=== PATIENT | female | born 1955 | race Caucasian/White ===

== ENCOUNTER → 2016-09-11 | Outpatient (CLI) | payer BC ==
[~2016-09-11] MED LIST: ESTR2TAB PO; NUTRTAB41 OR; PAROXETINE HCL 10 MG TABLET PO; VERA1TAB9 PO
[2016-09-11 17:08] LABS: Basophils # (auto) 0 uL; Basophils % (auto) 0.6 % (0.0-2.0); Eosinophils # (auto) 0.2 uL; Eosinophils % (auto) 2.7 % (0.0-7.0); Hematocrit 37.8 % (36.0-46.0); Hemoglobin 12.7 g/dL (12.2-16.2); Lymphocytes # (auto) 2.5 uL; Lymphocytes % (auto) 36.8 % (10.0-50.0); Mean Corpuscular Hemoglobin 27.5 pg (28.0-32.0); Mean Corpuscular Hgb Conc. 33.7 g/dL (32.0-36.0); Mean Corpuscular Volume 81.8 fL (80.0-100.0); Mean Platelet Volume 7.7 fL (7.4-10.4); Monocytes # (auto) 0.5 uL; Monocytes % (auto) 7.5 % (0.0-12.0); Neutrophils # (auto) 3.5 uL; Neutrophils % (auto) 52.4 % (37.0-80.0); Platelet Count (auto) 247 10^3/uL (140-450); Red Cell Distribution Width 13.6 % (11.6-16.0); White Blood Cell 6.8 10^3/uL (4.4-10.8)
[2016-09-11 17:21] LABS: INR 0.94 (0.9-1.15); Partial Thromboplastin Time 24.5 sec (22.64-33.71); Prothrombin Time 9.7 sec (9.37-12.3)
[2016-09-11 18:36] LABS: Albumin 3.6 g/dL (3.4-5.0); BUN/Creatinine Ratio 23.1; Bilirubin, Total 0.2 mg/dL (0.2-1.0); Calcium 8.9 mg/dL (8.5-10.1); Potassium 4.4 mmol/L (3.5-5.1); Total Protein 6.9 g/dL (6.4-8.2)
== END | disposition home or self-care (01) ==
LOC: LAB 16:42
PROVIDERS: ATTEND Internal Medicine
DX: T14.8 Other injury of unspecified body region (principal)
CPT/HCPCS: 36415; 80053; 83615; 85025; 85610; 85730

== ENCOUNTER → 2016-09-18 | Outpatient (CLI) | payer BC | END | disposition home or self-care (01) | LOC: LAB 16:56 | PROVIDERS: ATTEND Internal Medicine | DX: D68.9 Coagulation defect, unspecified (principal) | CPT/HCPCS: 36415; 85576 ==

== ENCOUNTER 2017-05-16 09:22 | Day surgery (SDC) | payer BC ==
[2017-05-13 12:48] LABS: Urine RBC None Seen /hpf (0 - 4)
[2017-05-13 12:57] LABS: Basophils # (auto) 0 uL; Basophils % (auto) 0.6 % (0.0-2.0); Eosinophils # (auto) 0.1 uL; Eosinophils % (auto) 1.1 % (0.0-7.0); Hematocrit 40.1 % (36.0-46.0); Hemoglobin 13.7 g/dL (12.2-16.2); Lymphocytes # (auto) 2.2 uL; Mean Corpuscular Hemoglobin 28.5 pg (28.0-32.0); Mean Corpuscular Hgb Conc. 34.1 g/dL (32.0-36.0); Mean Corpuscular Volume 83.4 fL (80.0-100.0); Mean Platelet Volume 8.3 fL (6.9-10.8); Monocytes # (auto) 0.5 uL; Monocytes % (auto) 6.6 % (0.0-12.0); Neutrophils # (auto) 4.5 uL; Neutrophils % (auto) 61.7 % (37.0-80.0); Nucleated Red Blood Cells % 0.1 %; Platelet Count (auto) 237 10^3/uL (140-450); Red Cell Distribution Width 13.3 % (11.8-14.3); White Blood Cell 7.4 10^3/uL (4.4-10.8)
[2017-05-13 13:11] LABS: Urine Bilirubin Negative (Negative); Urine Blood Negative /uL (Negative); Urine Color Yellow (Yellow); Urine Glucose Normal (Normal); Urine Ketone Negative (Negative); Urine Mucus FEW (None Seen); Urine Nitrite Negative (Negative); Urine Squamous Epithelial Cell FEW /hpf (<5); Urine Urobilinogen Normal (Negative); Urine pH 5.5 (5.0-8.0)
[2017-05-13 13:24] LABS: BUN/Creatinine Ratio 28.6; Calcium 9.2 mg/dL (8.5-10.1)
[2017-05-13 13:27] LABS: INR 0.92 (0.9-1.15)
[~2017-05-16] VITALS: Ht 162.6 cm; Wt 72.6 kg
[~2017-05-16 09:22] MED LIST changes: -ESTR2TAB PO; -NUTRTAB41 OR; +THYR60TA PO
[2017-05-16] MEDS ORDERED: ceFAZolin 1GM/50ML 50 ML IV ONE (09:42)
[2017-05-16] MEDS ORDERED: LACTATED RINGER'S 1,000 ML IV SCH (09:59)
[2017-05-16] MEDS ORDERED: GELATIN 1 SPONGE SIZE 100 TOP ONE (10:00)
[2017-05-16] MEDS ORDERED: METHYLENE BLUE 0.5% 5MG/ML 10ml AMP IV ONE (10:00)
[2017-05-16] MEDS ORDERED: ONDANSETRON HCL 4 MG/2 ML VIAL IV PRN (10:00)
[2017-05-16] MEDS ORDERED: CONJ ESTROGENS 0.625MG/GM VAG CRM 30GM PV ONE (10:00)
[2017-05-16] MEDS ORDERED: VASOPRESSIN 20 UNIT/ML ONE (10:02)
[2017-05-16] MEDS ORDERED: ONDANSETRON HCL 4 MG/2 ML VIAL IV ONE (10:15)
[2017-05-16] MEDS ORDERED: ePHEDrine SULFATE 50 MG/ML AMP IV PRN (10:15)
[2017-05-16] MEDS ORDERED: MIDAZOLAM HCL 1MG/1ML-2 ML VIAL IV PRN (10:15)
[2017-05-16] MEDS ORDERED: KETOROLAC TROMETH 30 MG/ML 1ML VIAL IV ONE (10:15)
[2017-05-16] MEDS ORDERED: LABETALOL HCL 5 MG/ML 4ML SYRINGE IV PRN (10:15)
[2017-05-16] MEDS ORDERED: MEPERIDINE HCL (50 MG/ML) 1 ML VIAL ONE (10:17)
[2017-05-16] MEDS ORDERED: fentaNYL CITRATE 100 MCG/2 ML VL ONE (10:17)
[2017-05-16] MEDS ORDERED: MIDAZOLAM HCL 1MG/1ML-2 ML VIAL ONE (10:17)
[2017-05-16] MEDS ORDERED: ONDANSETRON HCL 4 MG/2 ML VIAL ONE (10:18)
[2017-05-16] MEDS ORDERED: DEXAMETHASONE SOD PHOS 10MG/1ML VIAL INJ ONE (10:18)
[2017-05-16] MEDS ORDERED: KETOROLAC TROMETH 30 MG/ML 1ML VIAL ONE (10:18)
[2017-05-16] MEDS ORDERED: PROPOFOL 10 MG/ML 20 ML IV ONE (10:18)
[2017-05-16] MEDS ORDERED: LIDOCAINE 1% HCL (LOCAL ANESTH.) INJ 20ML MDV ONE (10:45)
[2017-05-16] MEDS ORDERED: BUPIVACAINE W/ EPINEPH 0.25% INJ 50ML MDV ONE (10:45)
[2017-05-16] MEDS: HYDROmorphone HCL 2 MG/ML VL IV PRN ×4 (12:00→12:30)
[2017-05-16] MEDS ORDERED: MORPHINE SULF INJ 2 MG/ML SYRINGE 1ML IV ONE (12:00)
[2017-05-16 12:45] VITALS: BP 112/74
== END 2017-05-16 12:54 | disposition home or self-care (01) ==
LOC: SUR 09:22
PROVIDERS: ATTEND Obstetrics & Gynecology
DX: N81.5 Vaginal enterocele (principal); N89.8 Other specified noninflammatory disorders of vagina; N81.10 Cystocele, unspecified; E03.9 Hypothyroidism, unspecified; I11.9 Hypertensive heart disease without heart failure; F10.99 Alcohol use, unspecified with unspecified alcohol-induced disorder; D69.6 Thrombocytopenia, unspecified; C56.9 Malignant neoplasm of unspecified ovary; D25.9 Leiomyoma of uterus, unspecified; F41.9 Anxiety disorder, unspecified; F32.9 Major depressive disorder, single episode, unspecified; Z90.710 Acquired absence of both cervix and uterus; I10 Essential (primary) hypertension
CPT/HCPCS: 36415; 56620; 57268; 80048; 81001; 85025; 85610; 85730; 87086; 88302; J0690; J1100; J1170; J1885; J2001; J2175; J2250; J2405; J2704; J3010

== ENCOUNTER → 2021-04-24 | Outpatient (CLI) | payer OTHER ==
[~2021-04-24] MED LIST changes: +VERA1TAB24 PO; -VERA1TAB9 PO
[2021-04-24 07:17] LABS: Basophils # (auto) 0.1 10 ^3/uL (0-0.2); Basophils % (auto) 0.9 % (0.0-2.0); Eosinophils # (auto) 0.1 10 ^3/uL (0-0.8); Eosinophils % (auto) 1.7 % (0.0-7.0); Hemoglobin 13.7 g/dL (12.2-16.2); Lymphocytes # (auto) 1.8 10 ^3/uL (0.4-5.4); Lymphocytes % (auto) 26.8 % (10.0-50.0); Mean Corpuscular Hgb Conc. 34.3 g/dL (32.0-36.0); Mean Corpuscular Volume 87.5 fL (80.0-100.0); Monocytes # (auto) 0.4 10 ^3/uL (0-1.3); Monocytes % (auto) 5.5 % (0.0-12.0); Neutrophils # (auto) 4.4 10 ^3/uL (1.6-8.6); Neutrophils % (auto) 65.1 % (37.0-80.0); Nucleated Red Blood Cells % 0.1 %; Red Blood Cells 4.57 10^6/uL (4.0-5.20); Red Cell Distribution Width 12.9 % (11.8-14.3); White Blood Cell 6.8 10^3/uL (4.4-10.8)
[2021-04-24 07:39] LABS: Cholesterol 138 mg/dL (< 200); HDL Cholesterol 58 mg/dL (40-59); LDL Cholesterol 69 mg/dL (< 100); Triglycerides 97 mg/dL (< 150)
[2021-04-24 12:11] LABS: Hepatitis A Ab IgM Negative
[2021-04-24 12:16] LABS: Hepatitis B Surface Antigen Negative (Negative)
[2021-04-24 12:22] LABS: Hepatitis B Core IgM Negative
[2021-04-24 12:43] LABS: Hepatitis C Antibody Negative (Negative)
== END | disposition home or self-care (01) ==
LOC: LAB 06:45
PROVIDERS: ATTEND Internal Medicine
DX: I10 Essential (primary) hypertension (principal); E78.5 Hyperlipidemia, unspecified
CPT/HCPCS: 36415; 80061; 80074; 84443; 85025

== ENCOUNTER → 2022-06-26 | Outpatient (CLI) | payer OTHER ==
[2022-06-26 14:44] LABS: Basophils # (auto) 0 10 ^3/uL (0-0.2); Basophils % (auto) 0.8 % (0.0-2.0); Eosinophils # (auto) 0.1 10 ^3/uL (0-0.8); Eosinophils % (auto) 1.3 % (0.0-7.0); Hematocrit 38.5 % (36.0-46.0); Hemoglobin 13.1 g/dL (12.2-16.2); Lymphocytes # (auto) 1.6 10 ^3/uL (0.4-5.4); Lymphocytes % (auto) 26.7 % (10.0-50.0); Mean Corpuscular Volume 85.3 fL (80.0-100.0); Monocytes # (auto) 0.5 10 ^3/uL (0-1.3); Monocytes % (auto) 7.6 % (0.0-12.0); Neutrophils # (auto) 3.9 10 ^3/uL (1.6-8.6); Neutrophils % (auto) 63.6 % (37.0-80.0); Nucleated Red Blood Cells % 0.2 %; Red Blood Cells 4.52 10^6/uL (4.0-5.20); Red Cell Distribution Width 13.8 % (11.8-14.3); White Blood Cell 6.1 10^3/uL (4.4-10.8)
[2022-06-26 15:17] LABS: Albumin 3.5 g/dL (3.4-5.0); Calcium 8.8 mg/dL (8.5-10.1); Potassium 4.3 mmol/L (3.5-5.1)
[2022-06-26 15:22] LABS: BUN/Creatinine Ratio 21.5; Bilirubin, Total 0.5 mg/dL (0.2-1.0); Total Protein 6.5 g/dL (6.4-8.2)
[2022-06-26 15:26] LABS: Follicle Stimulating Hormone 17.7 IU/L (SEE BELOW); Free T3 3.18 pg/mL (2.3-4.2)
== END | disposition home or self-care (01) ==
LOC: LAB 14:16
PROVIDERS: ATTEND Internal Medicine
DX: Z13.220 Encounter for screening for lipoid disorders (principal); E03.9 Hypothyroidism, unspecified; I10 Essential (primary) hypertension; E78.5 Hyperlipidemia, unspecified; N95.1 Menopausal and female climacteric states; E07.89 Other specified disorders of thyroid; E34.9 Endocrine disorder, unspecified; E53.9 Vitamin B deficiency, unspecified; E55.9 Vitamin D deficiency, unspecified
CPT/HCPCS: 36415; 80053; 80061; 82670; 83001; 84144; 84402; 84403; 84443; 84481; 85025

== ENCOUNTER 2022-08-10 09:17 | Emergency (ER) | payer OTHER ==
[~2022-08-10] VITALS: Ht 162.6 cm; Wt 72.0 kg
[2022-08-10 10:10] LABS: Urine Bacteria FEW /hpf (None Seen); Urine Blood 3+ /uL (Negative); Urine Mucus FEW (None Seen); Urine WBC 265 /hpf (0 - 5); Urine WBC Clumps PRESENT /hpf (None Seen)
[2022-08-10 10:18] LABS: Basophils # (auto) 0 10 ^3/uL (0-0.2); Basophils % (auto) 0.4 % (0.0-2.0); Eosinophils # (auto) 0 10 ^3/uL (0-0.8); Eosinophils % (auto) 0.1 % (0.0-7.0); Hematocrit 41.3 % (36.0-46.0); Hemoglobin 14.2 g/dL (12.2-16.2); Lymphocytes % (auto) 9.4 % (10.0-50.0); Mean Corpuscular Hemoglobin 28.7 pg (28.0-32.0); Mean Corpuscular Hgb Conc. 34.3 g/dL (32.0-36.0); Mean Corpuscular Volume 83.7 fL (80.0-100.0); Monocytes # (auto) 0.8 10 ^3/uL (0-1.3); Monocytes % (auto) 7.6 % (0.0-12.0); Neutrophils # (auto) 8.5 10 ^3/uL (1.6-8.6); Neutrophils % (auto) 82.5 % (37.0-80.0); Red Blood Cells 4.93 10^6/uL (4.0-5.20); White Blood Cell 10.3 10^3/uL (4.4-10.8)
[2022-08-10 10:30] LABS: Albumin 3.5 g/dL (3.4-5.0); Calcium 9.5 mg/dL (8.5-10.1); Potassium 3.4 mmol/L (3.5-5.1)
[2022-08-10 10:33] LABS: BUN/Creatinine Ratio 21.2; Bilirubin, Total 0.7 mg/dL (0.2-1.0); Total Protein 7.3 g/dL (6.4-8.2)
[2022-08-10 10:34] VITALS: BP 132/72
[2022-08-10] MEDS ORDERED: cefTRIAXone SOD 1,000 MG VL IM ONE (11:00)
[2022-08-10] MEDS ORDERED: PHENAZOPYRIDINE HCL 100 MG TAB PO ONE (11:00)
[2022-08-10] MEDS ORDERED: PHEN200T16 PO (11:24)
[2022-08-10] MEDS ORDERED: CIPR-173 PO (11:24)
== END 2022-08-10 11:35 | disposition home or self-care (01) ==
LOC: ER 09:17
DX: N39.0 Urinary tract infection, site not specified (principal); Z79.899 Other long term (current) drug therapy; I10 Essential (primary) hypertension
CPT/HCPCS: 36415; 80053; 81001; 83690; 85025; 96372; 99283; J0696

== ENCOUNTER → 2023-01-21 | Outpatient (CLI) | payer OTHER ==
[~2023-01-21] MED LIST changes: +CIPR-173 PO; +PHEN-922 PO; +VERA120T92 PO; -VERA1TAB24 PO
[2023-01-21 08:03] LABS: Follicle Stimulating Hormone 25.45 IU/L (SEE BELOW)
== END | disposition home or self-care (01) ==
LOC: LAB 06:17
PROVIDERS: ATTEND Obstetrics & Gynecology
DX: Z13.220 Encounter for screening for lipoid disorders (principal); E55.9 Vitamin D deficiency, unspecified; N05.1 Unspecified nephritic syndrome with focal and segmental glomerular lesions; E07.89 Other specified disorders of thyroid; E34.9 Endocrine disorder, unspecified; E53.9 Vitamin B deficiency, unspecified
CPT/HCPCS: 36415; 82670; 83001; 84144; 84403

== ENCOUNTER → 2023-03-28 | Outpatient (CLI) | payer OTHER ==
[2023-03-30 00:06] LABS: Vitamin D, 25-Hydroxy 39.1 ng/mL (30.0-100.0)
== END | disposition home or self-care (01) ==
LOC: LAB 09:49
PROVIDERS: ATTEND Internal Medicine
DX: Z00.01 Encounter for general adult medical examination with abnormal findings (principal); E55.9 Vitamin D deficiency, unspecified
CPT/HCPCS: 82306

== ENCOUNTER → 2023-05-23 | Outpatient (CLI) | payer OTHER ==
[2023-05-23 07:24] LABS: Basophils # (auto) 0 10 ^3/uL (0-0.2); Basophils % (auto) 0.7 % (0.0-2.0); Eosinophils # (auto) 0.1 10 ^3/uL (0-0.8); Eosinophils % (auto) 2.3 % (0.0-7.0); Hematocrit 40.6 % (36.0-46.0); Hemoglobin 13.6 g/dL (12.2-16.2); Lymphocytes # (auto) 1.6 10 ^3/uL (0.4-5.4); Lymphocytes % (auto) 26.4 % (10.0-50.0); Mean Corpuscular Hemoglobin 28.6 pg (28.0-32.0); Mean Corpuscular Hgb Conc. 33.4 g/dL (32.0-36.0); Mean Corpuscular Volume 85.7 fL (80.0-100.0); Monocytes # (auto) 0.4 10 ^3/uL (0-1.3); Monocytes % (auto) 6.5 % (0.0-12.0); Neutrophils # (auto) 3.8 10 ^3/uL (1.6-8.6); Neutrophils % (auto) 64.1 % (37.0-80.0); Red Blood Cells 4.74 10^6/uL (4.0-5.20); Red Cell Distribution Width 13.7 % (11.8-14.3); White Blood Cell 5.9 10^3/uL (4.4-10.8)
[2023-05-23 07:59] LABS: Alanine Aminotransferase 36 U/L (7-40); Albumin 4.4 g/dL (3.2-4.8); Alkaline Phosphatase 70 U/L (46-116); Anion Gap 3 (5-15); Aspartate Aminotransferase 23 U/L (13-40); BUN/Creatinine Ratio 21.3 (10.0-20.0); Bilirubin, Total 0.6 mg/dL (0.2-1.0); Blood Urea Nitrogen 16 mg/dL (9-23); Calcium 9.4 mg/dL (8.5-10.1); Carbon Dioxide 31 mmol/L (20-30); Chloride 109 mmol/L (98-107); Cholesterol 158 mg/dL (< 200); Glucose 85 mg/dL (74-106); HDL Cholesterol 62 mg/dL (40-59); LDL Cholesterol 77 mg/dL (< 100); Potassium 4.3 mmol/L (3.5-5.1); Sodium 143 mmol/L (136-145); Total Protein 6.8 g/dL (5.7-8.2); Triglycerides 84 mg/dL (< 150)
[2023-05-24 14:25] LABS: Urine Bacteria NONE SEEN /hpf (None Seen); Urine Blood Negative /uL (Negative); Urine Clarity Clear (Clear); Urine Color Colorless (Yellow); Urine Protein, UAD Negative (Negative); Urine Specific Gravity 1.009 (1.001-1.035); Urine Urobilinogen Normal (Negative); Urine WBC 1 /hpf (0 - 5)
== END | disposition home or self-care (01) ==
LOC: LAB 07:00
PROVIDERS: ATTEND Internal Medicine
DX: Z00.01 Encounter for general adult medical examination with abnormal findings (principal); I10 Essential (primary) hypertension; E78.5 Hyperlipidemia, unspecified; N39.0 Urinary tract infection, site not specified
CPT/HCPCS: 36415; 80053; 80061; 81001; 83036; 84439; 84443; 85025

== ENCOUNTER → 2023-05-24 | Outpatient (CLI) | payer OTHER | END | disposition home or self-care (01) | LOC: LAB 14:50 | PROVIDERS: ATTEND Family Medicine | DX: L82.1 Other seborrheic keratosis (principal) | CPT/HCPCS: 88302 ==

== ENCOUNTER 2023-08-07 10:53 | Day surgery (SDC) | payer OTHER, MEDICARE ==
[2023-08-02 14:28] LABS: Basophils # (auto) 0.1 10 ^3/uL (0-0.2); Basophils % (auto) 0.8 % (0.0-2.0); Eosinophils # (auto) 0.1 10 ^3/uL (0-0.8); Eosinophils % (auto) 1.5 % (0.0-7.0); Hematocrit 40.5 % (36.0-46.0); Hemoglobin 13.5 g/dL (12.2-16.2); Lymphocytes # (auto) 1.9 10 ^3/uL (0.4-5.4); Lymphocytes % (auto) 22.9 % (10.0-50.0); Mean Corpuscular Hemoglobin 28.9 pg (28.0-32.0); Mean Corpuscular Hgb Conc. 33.2 g/dL (32.0-36.0); Mean Corpuscular Volume 86.8 fL (80.0-100.0); Monocytes # (auto) 0.5 10 ^3/uL (0-1.3); Monocytes % (auto) 5.5 % (0.0-12.0); Neutrophils # (auto) 5.7 10 ^3/uL (1.6-8.6); Neutrophils % (auto) 69.3 % (37.0-80.0); Red Blood Cells 4.66 10^6/uL (4.0-5.20); White Blood Cell 8.2 10^3/uL (4.4-10.8)
[2023-08-02 14:37] LABS: INR 0.96 (0.9-1.15); Partial Thromboplastin Time 23.9 SEC (24.5-34.5); Prothrombin Time 10.1 sec (9.3-11.8)
[2023-08-02 14:41] LABS: Alanine Aminotransferase 25 U/L (7-40); Albumin 4.4 g/dL (3.2-4.8); Alkaline Phosphatase 67 U/L (46-116); Anion Gap 4 (5-15); Aspartate Aminotransferase 20 U/L (13-40); Blood Urea Nitrogen 14 mg/dL (9-23); Calcium 9.9 mg/dL (8.5-10.1); Carbon Dioxide 29 mmol/L (20-30); Chloride 107 mmol/L (98-107); Glucose 103 mg/dL (74-106); Potassium 3.9 mmol/L (3.5-5.1); Sodium 140 mmol/L (136-145)
[2023-08-02 14:42] LABS: Bilirubin, Total 0.7 mg/dL (0.2-1.0); Total Protein 6.9 g/dL (5.7-8.2)
[~2023-08-07] VITALS: Ht 162.6 cm; Wt 72.1 kg
[~2023-08-07 10:53] MED LIST changes: +CHOLCAP4 PO; -CIPR-173 PO; +FLUT110A IN; +LEVO100C3 PO; +METO25TA5 PO; +PAR20T PO; -PAROXETINE HCL 10 MG TABLET PO; -PHEN-922 PO; +ROSU20TA14 PO; -THYR60TA PO
[2023-08-07] MEDS ORDERED: SODIUM CHLORIDE LOCK 10 ML ONE (10:58)
[2023-08-07] MEDS ORDERED: fentaNYL CITRATE 100 MCG/2 ML VL ONE (10:59)
[2023-08-07] MEDS ORDERED: diphenhdrAMINE HCL 50 MG/1 ML VL ONE (10:59)
[2023-08-07] MEDS ORDERED: MIDAZOLAM HCL 5 MG/ML-1ML VIAL ONE (10:59)
[2023-08-07 13:45] VITALS: O2SAT 100
[2023-08-07 14:13] VITALS: TEMP 97.3; O2SAT 94
[2023-08-07 14:50] VITALS: BP 146/80; PULSE 70; RESP 13; O2SAT 97
== END 2023-08-07 14:55 | disposition home or self-care (01) ==
LOC: GI 10:53
PROVIDERS: ATTEND Internal Medicine Gastroenterology
DX: Z12.11 Encounter for screening for malignant neoplasm of colon (principal); K57.30 Diverticulosis of large intestine without perforation or abscess without bleeding; K63.5 Polyp of colon; K64.8 Other hemorrhoids; I10 Essential (primary) hypertension; F41.9 Anxiety disorder, unspecified; Z90.710 Acquired absence of both cervix and uterus; Z98.890 Other specified postprocedural states; Z79.899 Other long term (current) drug therapy
CPT/HCPCS: 36415; 45380; 80053; 85025; 85610; 85730; J1200; J2250; J3010; 99152; 99153

== ENCOUNTER → 2023-09-06 | Outpatient (CLI) | payer OTHER ==
[2023-09-06 07:14] LABS: Basophils # (auto) 0 10 ^3/uL (0-0.2); Basophils % (auto) 0.8 % (0.0-2.0); Eosinophils # (auto) 0.1 10 ^3/uL (0-0.8); Eosinophils % (auto) 1.8 % (0.0-7.0); Hematocrit 40.6 % (36.0-46.0); Hemoglobin 13.7 g/dL (12.2-16.2); Lymphocytes # (auto) 1.5 10 ^3/uL (0.4-5.4); Lymphocytes % (auto) 26.9 % (10.0-50.0); Mean Corpuscular Hgb Conc. 33.6 g/dL (32.0-36.0); Mean Corpuscular Volume 86.2 fL (80.0-100.0); Monocytes # (auto) 0.3 10 ^3/uL (0-1.3); Monocytes % (auto) 5.9 % (0.0-12.0); Neutrophils # (auto) 3.6 10 ^3/uL (1.6-8.6); Neutrophils % (auto) 64.6 % (37.0-80.0); Nucleated Red Blood Cells % 0.1 %; Red Blood Cells 4.72 10^6/uL (4.0-5.20); White Blood Cell 5.6 10^3/uL (4.4-10.8)
[2023-09-06 07:48] LABS: Erythrocyte Sedimentation Rate 7 mm/hr (0-20)
[2023-09-06 07:49] LABS: Follicle Stimulating Hormone 34.79 IU/L (SEE BELOW)
[2023-09-07 08:06] LABS: Estradiol 51.1 pg/mL (0.0-54.7); Rheumatoid Arthritis Factor <10.0 IU/mL (<14.0)
== END | disposition home or self-care (01) ==
LOC: LAB 06:55
PROVIDERS: ATTEND Obstetrics & Gynecology
DX: Z13.220 Encounter for screening for lipoid disorders (principal); E53.9 Vitamin B deficiency, unspecified; E07.89 Other specified disorders of thyroid; N95.1 Menopausal and female climacteric states
CPT/HCPCS: 36415; 82670; 83001; 84144; 84403; 85025; 85652; 86431

== ENCOUNTER → 2023-10-24 | Outpatient (CLI) | payer OTHER ==
[2023-10-24 15:32] LABS: Chloride 109 mmol/L (98-107); Potassium 3.8 mmol/L (3.5-5.1); Sodium 139 mmol/L (136-145)
[2023-10-24 15:33] LABS: Anion Gap 3 (5-15); Carbon Dioxide 27 mmol/L (20-30)
[2023-10-24 15:38] LABS: Glucose 100 mg/dL (74-106)
[2023-10-24 15:39] LABS: BUN/Creatinine Ratio 30.8 (10.0-20.0); Blood Urea Nitrogen 20 mg/dL (9-23); Magnesium 1.9 mg/dL (1.6-2.6)
== END | disposition home or self-care (01) ==
LOC: LAB 14:46
PROVIDERS: ATTEND Internal Medicine
DX: R00.2 Palpitations (principal); M25.511 Pain in right shoulder
CPT/HCPCS: 36415; 80048; 82306; 83735; 84403; 84443

== ENCOUNTER 2024-02-05 11:23 | Emergency (ER) | payer OTHER, MEDICARE ==
[~2024-02-05] VITALS: Ht 162.6 cm; Wt 73.8 kg
[2024-02-05 12:07] LABS: Basophils # (auto) 0 10 ^3/uL (0-0.2); Basophils % (auto) 0.5 % (0.0-2.0); Eosinophils # (auto) 0.1 10 ^3/uL (0-0.8); Eosinophils % (auto) 0.6 % (0.0-7.0); Hematocrit 39.5 % (36.0-46.0); Hemoglobin 13.6 g/dL (12.2-16.2); Lymphocytes # (auto) 1.3 10 ^3/uL (0.4-5.4); Lymphocytes % (auto) 12.3 % (10.0-50.0); Mean Corpuscular Hgb Conc. 34.5 g/dL (32.0-36.0); Monocytes # (auto) 0.8 10 ^3/uL (0-1.3); Monocytes % (auto) 7.4 % (0.0-12.0); Neutrophils # (auto) 8.4 10 ^3/uL (1.6-8.6); Neutrophils % (auto) 79.2 % (37.0-80.0); Nucleated Red Blood Cells % 0.2 %; Red Cell Distribution Width 13.3 % (11.8-14.3); White Blood Cell 10.6 10^3/uL (4.4-10.8)
[2024-02-05 12:24] LABS: Alanine Aminotransferase 21 U/L (7-40); Albumin 4.5 g/dL (3.2-4.8); Alkaline Phosphatase 78 U/L (46-116); Anion Gap 9 (5-15); Aspartate Aminotransferase 11 U/L (13-40); BUN/Creatinine Ratio 12.5 (10.0-20.0); Bilirubin, Total 0.8 mg/dL (0.2-1.0); Blood Urea Nitrogen 12 mg/dL (9-23); Calcium 9.8 mg/dL (8.7-10.4); Carbon Dioxide 27 mmol/L (20-30); Chloride 104 mmol/L (98-107); Glucose 102 mg/dL (74-106); Potassium 3.3 mmol/L (3.5-5.1); Sodium 140 mmol/L (136-145)
[2024-02-05 12:30] VITALS: PULSE 99; RESP 18; O2SAT 99
[2024-02-05] MEDS: SODIUM CHLORIDE 0.9% 1,000 ML IV ONE (12:33)
[2024-02-05] MEDS: cefTRIAXone 2GM/50ML D5W 50 ML IV ONE (13:14)
[2024-02-05] MEDS: KETOROLAC TROMETH 30 MG/ML 1ML VIAL IV ONE (13:18)
[2024-02-05] MEDS: ONDANSETRON HCL 4 MG/2 ML VIAL IV ONE (13:19)
[2024-02-05] MEDS: PHENAZOPYRIDINE HCL 100 MG TAB PO ONE (13:19)
[2024-02-05] MEDS: POTASSIUM CHL 20 Meq TABLET PO ONE (13:58)
[2024-02-05 16:00] LABS: Urine Bacteria None Seen /hpf (None Seen)
[2024-02-05] MEDS ORDERED: ACET-1304 PO (16:04)
[2024-02-05] MEDS ORDERED: CEPH500T PO (16:04)
[2024-02-05] MEDS ORDERED: ZOFR4T PO (16:04)
[2024-02-05 16:13] LABS: Urine Blood 1+ /uL (Negative); Urine Clarity Clear (Clear); Urine Color Dark-Yellow (Yellow); Urine Hyaline Cast FEW /lpf (0 - 2); Urine Mucus FEW (None Seen); Urine Protein, UAD Negative (Negative); Urine Specific Gravity 1.009 (1.001-1.035); Urine Urobilinogen Normal (Negative); Urine WBC 7 /hpf (0 - 5)
[2024-02-05 16:24] VITALS: BP 116/77; PULSE 96; RESP 16; TEMP 98.5; O2SAT 98
== END 2024-02-05 17:06 | disposition home or self-care (01) ==
LOC: ER 11:23
DX: N39.0 Urinary tract infection, site not specified (principal); N23 Unspecified renal colic; I10 Essential (primary) hypertension; Z79.899 Other long term (current) drug therapy
CPT/HCPCS: 36415; 74176; 80053; 81001; 85025; 96361; 96365; 96375; 99285; J0696; J1885; J2405; J7030

== ENCOUNTER → 2024-02-11 | Outpatient (CLI) | payer OTHER ==
[~2024-02-11] MED LIST changes: +ACET-1304 PO; +CEPH500T PO; +ZOFR4T PO
== END | disposition home or self-care (01) ==
LOC: LAB 06:37
PROVIDERS: ATTEND Internal Medicine
DX: E03.9 Hypothyroidism, unspecified (principal)
CPT/HCPCS: 36415; 84443

== ENCOUNTER → 2024-03-02 | Outpatient (CLI) | payer OTHER ==
[2024-03-02 08:24] LABS: Anion Gap 5 (5-15); Calcium 10.4 mg/dL (8.7-10.4); Carbon Dioxide 29 mmol/L (20-30); Chloride 106 mmol/L (98-107); Potassium 3.9 mmol/L (3.5-5.1); Sodium 140 mmol/L (136-145)
[2024-03-02 08:30] LABS: BUN/Creatinine Ratio 17.4 (10.0-20.0); Blood Urea Nitrogen 15 mg/dL (9-23); Glucose 93 mg/dL (74-106)
== END | disposition home or self-care (01) ==
LOC: LAB 07:00
PROVIDERS: ATTEND Internal Medicine
DX: E87.6 Hypokalemia (principal); E03.9 Hypothyroidism, unspecified
CPT/HCPCS: 36415; 80048; 83735

== ENCOUNTER → 2024-03-23 | Outpatient (CLI) | payer OTHER ==
[2024-03-23 11:27] LABS: Anion Gap 7 (5-15); Carbon Dioxide 28 mmol/L (20-30); Chloride 105 mmol/L (98-107); Potassium 4.3 mmol/L (3.5-5.1); Sodium 140 mmol/L (136-145)
[2024-03-23 11:28] LABS: Calcium 9.8 mg/dL (8.7-10.4)
[2024-03-23 11:33] LABS: BUN/Creatinine Ratio 18.8 (10.0-20.0); Blood Urea Nitrogen 16 mg/dL (9-23); Glucose 87 mg/dL (74-106)
[2024-03-23 11:34] LABS: Magnesium 2.1 mg/dL (1.6-2.6)
== END | disposition home or self-care (01) ==
LOC: LAB 10:13
PROVIDERS: ATTEND Internal Medicine
DX: E03.9 Hypothyroidism, unspecified (principal); E78.6 Lipoprotein deficiency
CPT/HCPCS: 36415; 80048; 83735; 84443

== ENCOUNTER → 2024-06-18 | Outpatient (CLI) | payer OTHER ==
[2024-06-18 08:16] LABS: Chloride 107 mmol/L (98-107); Potassium 3.9 mmol/L (3.5-5.1); Sodium 142 mmol/L (136-145)
[2024-06-18 08:17] LABS: Anion Gap 3 (5-15)
[2024-06-18 08:18] LABS: Calcium 10.3 mg/dL (8.7-10.4)
[2024-06-18 08:22] LABS: Glucose 93 mg/dL (74-106); Triglycerides 126 mg/dL (< 150)
[2024-06-18 08:23] LABS: BUN/Creatinine Ratio 17.6 (10.0-20.0); Blood Urea Nitrogen 16 mg/dL (9-23); Carbon Dioxide 32 mmol/L (20-31); LDL Cholesterol 62 mg/dL (< 100); Magnesium 2.1 mg/dL (1.6-2.6)
[2024-06-18 08:24] LABS: Cholesterol 140 mg/dL (< 200); HDL Cholesterol 52 mg/dL (40-59)
== END | disposition home or self-care (01) ==
LOC: LAB 07:00
PROVIDERS: ATTEND Internal Medicine
DX: I10 Essential (primary) hypertension (principal); E03.9 Hypothyroidism, unspecified; R00.2 Palpitations
CPT/HCPCS: 36415; 80048; 80061; 82607; 83735; 84443

== ENCOUNTER → 2024-08-18 | Outpatient (CLI) | payer OTHER | END | disposition home or self-care (01) | LOC: LAB 07:05 | PROVIDERS: ATTEND Internal Medicine | DX: K59.1 Functional diarrhea (principal) | CPT/HCPCS: 87045; 87177; 87427 ==

== ENCOUNTER → 2024-09-07 | Outpatient (CLI) | payer OTHER, MEDICARE ==
[2024-09-07 16:14] LABS: Basophils # (auto) 0.1 10 ^3/uL (0-0.2); Basophils % (auto) 0.7 % (0.0-2.0); Eosinophils # (auto) 0.2 10 ^3/uL (0-0.8); Eosinophils % (auto) 2.6 % (0.0-7.0); Hematocrit 40.7 % (36.0-46.0); Hemoglobin 13.7 g/dL (12.2-16.2); Lymphocytes # (auto) 2.6 10 ^3/uL (0.4-5.4); Lymphocytes % (auto) 31.1 % (10.0-50.0); Mean Corpuscular Hemoglobin 28.8 pg (28.0-32.0); Mean Corpuscular Hgb Conc. 33.7 g/dL (32.0-36.0); Mean Corpuscular Volume 85.3 fL (80.0-100.0); Monocytes # (auto) 0.6 10 ^3/uL (0-1.3); Monocytes % (auto) 6.6 % (0.0-12.0); Neutrophils # (auto) 4.9 10 ^3/uL (1.6-8.6); Nucleated Red Blood Cells % 0.2 %; Platelet Count (auto) 206 10^3/uL (140-450); Red Blood Cells 4.77 10^6/uL (4.0-5.20); Red Cell Distribution Width 13.5 % (11.8-14.3); White Blood Cell 8.3 10^3/uL (4.4-10.8)
== END | disposition home or self-care (01) ==
LOC: LAB 15:30
PROVIDERS: ATTEND Internal Medicine
DX: E03.9 Hypothyroidism, unspecified (principal); E78.5 Hyperlipidemia, unspecified
CPT/HCPCS: 36415; 82607; 83036; 85025

== ENCOUNTER → 2024-09-23 | Outpatient (CLI) | payer OTHER ==
[2024-09-23 07:30] LABS: Urine Bacteria FEW /hpf (None Seen); Urine Blood Negative /uL (Negative); Urine Budding Yeast OCCASIONAL /hpf (None Seen); Urine Clarity Turbid (Clear); Urine Color Yellow (Yellow); Urine Mucus FEW (None Seen); Urine Protein, UAD TRACE (Negative); Urine Specific Gravity 1.025 (1.001-1.035); Urine Squamous Epithelial Cell MOD /hpf (<5); Urine Urobilinogen Normal (Negative); Urine WBC 3 /HPF (0-5); Urine pH 5.5 (5.0-9.0)
== END | disposition home or self-care (01) ==
LOC: LAB 07:07
PROVIDERS: ATTEND Internal Medicine
DX: Z12.11 Encounter for screening for malignant neoplasm of colon (principal); E78.5 Hyperlipidemia, unspecified; E03.9 Hypothyroidism, unspecified
CPT/HCPCS: 81001; 82270

== ENCOUNTER → 2024-10-05 | Outpatient (CLI) | payer OTHER ==
[2024-10-05 10:38] LABS: Alanine Aminotransferase 17 U/L (7-40); Albumin 4.4 g/dL (3.2-4.8); Alkaline Phosphatase 66 U/L (46-116); Aspartate Aminotransferase 16 U/L (13-40); BUN/Creatinine Ratio 17.4 (10.0-20.0); Blood Urea Nitrogen 15 mg/dL (9-23); Calcium 9.8 mg/dL (8.7-10.4); Carbon Dioxide 27 mmol/L (20-31); Glucose 97 mg/dL (74-106); Potassium 4.6 mmol/L (3.5-5.1); Sodium 142 mmol/L (136-145)
[2024-10-05 10:39] LABS: Bilirubin, Total 0.5 mg/dL (0.2-1.0)
[2024-10-05 10:53] LABS: Anion Gap 4 (5-15)
[2024-10-05 11:02] LABS: Chloride 111 mmol/L (98-107)
== END | disposition home or self-care (01) ==
LOC: LAB 09:46
PROVIDERS: ATTEND Internal Medicine
DX: N13.30 Unspecified hydronephrosis (principal); K76.89 Other specified diseases of liver
CPT/HCPCS: 36415; 80053

== ENCOUNTER 2024-11-09 06:09 | Inpatient (IN) | payer OTHER, MEDICARE ==
[2024-11-06 07:18] LABS: Basophils # (auto) 0.1 10 ^3/uL (0-0.2); Eosinophils # (auto) 0.1 10 ^3/uL (0-0.8); Eosinophils % (auto) 2.2 % (0.0-7.0); Hematocrit 37.7 % (36.0-46.0); Hemoglobin 12.8 g/dL (12.2-16.2); Lymphocytes # (auto) 1.6 10 ^3/uL (0.4-5.4); Mean Corpuscular Hemoglobin 28.5 pg (28.0-32.0); Mean Corpuscular Hgb Conc. 33.9 g/dL (32.0-36.0); Mean Corpuscular Volume 84.2 fL (80.0-100.0); Monocytes # (auto) 0.3 10 ^3/uL (0-1.3); Monocytes % (auto) 5.6 % (0.0-12.0); Neutrophils # (auto) 3.6 10 ^3/uL (1.6-8.6); Neutrophils % (auto) 63.2 % (37.0-80.0); Platelet Count (auto) 230 10^3/uL (140-450); Red Blood Cells 4.48 10^6/uL (4.0-5.20); Red Cell Distribution Width 13.3 % (11.8-14.3); White Blood Cell 5.7 10^3/uL (4.4-10.8)
[2024-11-06 07:24] LABS: Urine Bacteria FEW /hpf (None Seen); Urine Blood Negative /uL (Negative); Urine Clarity Turbid (Clear); Urine Color Yellow (Yellow); Urine Mucus FEW (None Seen); Urine Protein, UAD Negative (Negative); Urine Specific Gravity 1.022 (1.001-1.035); Urine Squamous Epithelial Cell MOD /hpf (<5); Urine Urobilinogen Normal (Negative); Urine WBC 3 /HPF (0-5); Urine pH 5.5 (5.0-9.0)
[2024-11-06 07:34] LABS: INR 0.94 (0.9-1.15); Partial Thromboplastin Time 22.8 SEC (24.5-34.5)
[2024-11-06 07:41] LABS: Alanine Aminotransferase 11 U/L (7-40); Albumin 4.4 g/dL (3.2-4.8); Alkaline Phosphatase 59 U/L (46-116); Anion Gap 5 (5-15); BUN/Creatinine Ratio 21.3 (10.0-20.0); Blood Urea Nitrogen 19 mg/dL (9-23); Carbon Dioxide 28 mmol/L (20-31); Glucose 105 mg/dL (74-106); Potassium 4.4 mmol/L (3.5-5.1); Sodium 142 mmol/L (136-145); Total Protein 6.9 g/dL (5.7-8.2)
[2024-11-06 07:42] LABS: Bilirubin, Total 0.5 mg/dL (0.2-1.0)
[2024-11-06 07:51] LABS: Aspartate Aminotransferase 11 U/L (13-40); Chloride 109 mmol/L (98-107)
[2024-11-09] VITALS (18 sets, daily range): BP systolic 89–103; BP diastolic 53–63; PULSE 57–83; RESP 10–19; TEMP 96.3–98; O2SAT 90–99
[~2024-11-09] VITALS: Ht 162.6 cm; Wt 94.2 kg
[~2024-11-09 06:09] MED LIST changes: -ACET-1304 PO; -CEPH500T PO; -CHOLCAP4 PO; +FAMO-68 PO; -FLUT110A IN; +LOSA-534 PO; +POTA-36 PO; +PROG200C21 PO; +THIA100T10 GT; -VERA120T92 PO; -ZOFR4T PO
[2024-11-09] MEDS: ceFAZolin 2 GM/D5W50ml 50 ML IV ONE (06:29)
[2024-11-09] MEDS: METOCLOPRAMIDE HCL 5MG/ml INJ 2ml VIAL IV ONE (06:30)
[2024-11-09] MEDS ORDERED: fentaNYL CITRATE 100 MCG/2 ML VL IV PRN (06:30)
[2024-11-09] MEDS: KETOROLAC TROMETH 30 MG/ML 1ML VIAL IV ONE (06:30)
[2024-11-09] MEDS ORDERED: HYDROmorphone HCL 2 MG/ML VL/or syr IV PRN ×2 (06:30)
[2024-11-09] MEDS ORDERED: MORPHINE SULFATE 4 MG/ML SYR/VIAL IV PRN (06:30)
[2024-11-09] MEDS ORDERED: MORPHINE SULFATE INJ 2 MG/ml SYRG IV PRN ×2 (06:30→08:00)
[2024-11-09] MEDS: ACETAMINOPHEN IV 100 ML IV ONE (06:36)
[2024-11-09] MEDS: CELECOXIB 100 MG CAP ONE (06:36)
[2024-11-09] MEDS ORDERED: BUPIVACAINE/DEXTROSE MPF 0.75% 2 ML AMP IT ONE (06:40)
[2024-11-09] MEDS ORDERED: fentaNYL CITRATE 100 MCG/2 ML VL ONE (06:40)
[2024-11-09] MEDS ORDERED: LIDOCAINE 1% INJ PF 5ML AMP ONE (06:40)
[2024-11-09] MEDS ORDERED: ONDANSETRON HCL 4 MG/2 ML VIAL ONE (06:40)
[2024-11-09] MEDS ORDERED: KETAMINE 50mg/ML 1ml syringe ONE (06:40)
[2024-11-09] MEDS ORDERED: DexAMETHasone SOD PHOS 10MG/1ML VIAL INJ ONE (06:40)
[2024-11-09] MEDS ORDERED: MIDAZOLAM HCL 2MG/2ML 2ml VIAL (1mg/ml) ONE (06:40)
[2024-11-09] MEDS ORDERED: PROPOFOL 10 MG/ML 20 ML IV ONE (06:40)
[2024-11-09] MEDS ORDERED: MORPHINE SULF PF 5 MG/10 ML VIAL ONE (06:40)
[2024-11-09] MEDS: ROCURONIUM 10MG/ML 10ML VIAL IV ONE (06:47)
[2024-11-09] MEDS: SUCCINYLCHOLINE CHLORIDE 20 MG/ML 10ML VIAL IV ONE (06:47)
[2024-11-09] MEDS: TETRACAINE 1% INJ 2 ML VIAL IJ ONE (06:47)
[2024-11-09] MEDS: TRANEXAMIC ACID 20 ML ONE (07:00)
[2024-11-09] MEDS: CELECOXIB 100 MG CAP PO ONE (07:00)
[2024-11-09] MEDS: PREGABALIN CAPSULE 75 MG CAP PO ONE (07:00)
[2024-11-09] MEDS: ACETAMINOPHEN IV 1000 MG/100ML (10MG/ML) IV ONE (07:00)
[2024-11-09] MEDS: KETOROLAC TROMETH 30 MG/ML 1ML VIAL ONE (07:02)
[2024-11-09] MEDS: VANCOMYCIN HCL 1000 MG VL ONE (07:02)
[2024-11-09] MEDS: CEFEPIME 1GM/ 50ML 50 ML IV ONE (07:19)
[2024-11-09] MEDS: LACTATED RINGER'S 1,000 ML IV SCH (08:00)
[2024-11-09] MEDS ORDERED: NITROGLYCERIN 0.4 MG SL TAB SL PRN (08:00)
[2024-11-09] MEDS: ceFAZolin 1GM/50ML 50 ML IV SCH (08:00)
[2024-11-09] MEDS: BUPIVACAINE 0.25% INJ 50ML VIAL ONE (08:38)
[2024-11-09] MEDS: PARoxetine 20 MG TAB PO SCH (10:00)
[2024-11-09] MEDS: DOCUSATE SOD 100 MG CAP PO SCH (10:00)
[2024-11-09] MEDS: THIAMINE HCL 100 MG TAB GT SCH (10:00)
[2024-11-09] MEDS: FAMOTIDINE 20 MG TAB PO SCH (10:00)
[2024-11-09] MEDS ORDERED: POTASSIUM CHLORIDE 8 MEQ PO SCH (10:00)
[2024-11-09] MEDS: METOPROLOL TARTRATE 25 MG TAB PO SCH (10:00)
[2024-11-09] MEDS: LOSARTAN POTASSIUM 50 MG TAB PO SCH (10:00)
--- NOTE | 2024-11-09 10:36 | DVH ---
EXAM: XY R KNEE 3V XRAY CLINICAL INDICATION: S/P SURGERY TECHNIQUE: XY R KNEE 3V XRAY Comparison: None FINDINGS/IMPRESSION: Right total knee arthroplasty. Postsurgical changes are noted status post right total knee arthroplas ty including surgical healing.
[2024-11-09] MEDS ORDERED: diphenhdrAMINE HCL 50 MG/1 ML VL IV PRN (10:45)
[2024-11-09] MEDS ORDERED: NALOXONE HCL 0.4 MG/ML VIAL IV PRN (10:45)
--- NOTE | 2024-11-09 10:50 | DVHOP2 ---
Discharge Orders Discharge Orders DISCHARGE WHEN CRITERIA MET DISCHARGE WHEN CRITERIA MET. Operative Rep- Outpatient Operative Report PRE-OP DIAGNOSIS: Right knee osteoarthritis PRE-OP PAIN LEVEL (0-10): Same POST-OP DIAGNOSIS: Right knee osteoarthritis [place] protocol followed: Yes ESTIMATED BLOOD LOSS: 50 cc PROCEDURE: Right total knee arthroplasty Computer navigation with total knee arthroplasty The patient is a 69-year-old female who is failing conservative measures physical therapy activity modifications injections and bracing. The patient has failed all nonoperative modalities of the right lower extremity. The patient has failed nonoperative treatments as pain and discomfort with the right lower extremity The patient understands the risks and benefits of surgical and nonsurgical treatment of the right lower extremity and also surgical treatment of the right lower extremity. The patient was seen in the preoperative volume of the right lower extremity was marked the patient is to have procedure and anesthesia was induced and also to hospital protocol the right lower extremity swelling due to evidence infection as it was not for infection prophylaxis TXA was given for bleeding prophylaxis right lower extremity was prepped and draped in standard fashion there was an incision was made in incision through skin subcu tissue muscle fascia down to bone the medial vertebral arthrotomy was then created with Zantac the fat pad was then carefully removed off the fat pad small deep medial release was then completed the ACL PCL medial and lateral meniscus were transected once I was I was retracted and the proximal tibia cut was then completed with computer navigation with a 3 degree flexion. With a optomechanical engineer hematocrit access in the appropriate manner the proximal tibia cut was then completed and the distal femoral, with a computer navigation on flexion-extension interosseous rotation was then done with a 3 degree flexion care with the distal femoral hardware and completed the form 1 sizing block was then brought onto the field and then sized to a size 4 femoral component was present at the tibial base plate was then removed the medial and lateral meniscus removed the ACL was removed the PCL was carefully pancreas and often 7 cm size 3 tibial base plate was punching killed the proper manner the bone stock was appropriate size femoral component was patch and kill all the trochlea was carefully removed the terminal liver spacer block was balanced in flexion and it is such a low 10 mm spacer block was then removed. Stent at the tibia was then placed in prone position the femoral component was placed in the prone position once I was entered in the appropriate manner a 10 mm poly was then balanced and flexors interossei and rotation all trial components were carefully. A size 3 tibial base plate cement was put in a size 4 femoral component cementless was brought in a 10 mm deep dish poly was placed in appropriate position patella in the rectum was then completed the knee was irrigated comparison saline then closed with an Ethibond followed by 1. Vicryl followed by 0 Vicryl followed by 2-0 Monocryl followed by joe prior plate negative pressure wound VAC the patient will be weight-bearing as tolerated on the right lower extremity PT OT out of bed daily follow up in 2 weeks' time SURGEON/FRACTIONATION SUPERVISOR: Tylor Hernandez ANESTHESIA: Marbin Hinojosa ANESTHESIOLOGIST: INFORMED CONSENT: Informed Consent: Discussed all inherent risks, complications, and alternatives treatments with the patient. Patient has agreed to proceed with the procedure. I have reviewed all pre-operative assessments including Labs, EKGs, and radiographic images that has been performed. Patient is an appropriate candidate for the outpatient surgical center procedure. TYLOR HERNANDEZ MD November 09, 2024 10:50
[2024-11-09] MEDS: SODIUM CHLOR 0.9% PF (SALINE LOCK) 10ML VIAL/SYR IV SCH (14:00)
[2024-11-09] MEDS: HYDROmorphone HCL 2 MG/ML VL/or syr IV PRN (14:08)
[2024-11-09] MEDS: POTASSIUM CHLORIDE 8 MEQ PO SCH (21:36)
[2024-11-09] MEDS: ATORVASTATIN 20 MG TAB PO SCH (21:38)
[2024-11-10] VITALS (15 sets, daily range): BP systolic 83–104; BP diastolic 38–68; PULSE 52–93; RESP 14–18; TEMP 96.5–98.3; O2SAT 92–99
[2024-11-10] MEDS: LEVOTHYROXINE SODIUM 100 MCG TAB PO SCH (06:04)
[2024-11-10 07:05] LABS: Hematocrit 32.5 % (36.0-46.0); Hemoglobin 11.4 g/dL (12.2-16.2)
[2024-11-10 07:08] LABS: Alanine Aminotransferase 12 U/L (7-40); Albumin 3.9 g/dL (3.2-4.8); Alkaline Phosphatase 52 U/L (46-116); Anion Gap 9 (5-15); Bilirubin, Total 0.7 mg/dL (0.2-1.0); Calcium 9.7 mg/dL (8.7-10.4); Carbon Dioxide 25 mmol/L (20-31); Chloride 104 mmol/L (98-107); Potassium 4.7 mmol/L (3.5-5.1); Sodium 138 mmol/L (136-145); Total Protein 6.1 g/dL (5.7-8.2)
[2024-11-10 07:09] LABS: Aspartate Aminotransferase 9 U/L (13-40); Blood Urea Nitrogen 33 mg/dL (9-23); Glucose 119 mg/dL (74-106)
[2024-11-10] MEDS: ENOXAPARIN SOD 40 MG/0.4 ML SYRINGE SC SCH (08:35)
[2024-11-10] MEDS: OXYCODONE W/ ACETAMINOPHEN 5/325MG TABLET PO PRN (09:35)
[2024-11-10] MEDS: SODIUM CHLORIDE 0.9% 1,000 ML IV SCH (10:15)
--- NOTE | 2024-11-10 10:17 | DVHHP2 ---
Review of Systems Allergies: Coded Allergies: NO KNOWN ALLERGIES (Unverified , 05/13/17) Medications Current Medications Medications Dose Ordered Sig/Gale Route Start Time Stop Time Status Last Admin Dose Admin Famotidine 20 mg DAILY PO 11/09/24 10:00 11/10/24 08:33 20 MG Losartan Potassium 50 mg DAILY PO 11/09/24 10:00 Metoprolol Tartrate 25 mg DAILY PO 11/09/24 10:00 Paroxetine HCl 20 mg DAILY PO 11/09/24 10:00 11/10/24 08:35 20 MG Thiamine HCl 100 mg DAILY GT 11/09/24 10:00 11/10/24 08:33 100 MG Levothyroxine Sodium 100 mcg QAM PO 11/10/24 07:00 11/10/24 06:04 100 MCG Atorvastatin Calcium 40 mg HS PO 11/09/24 22:00 11/09/24 21:38 40 MG Lactated Ringer's 1,000 ml @ 100 mls/hr Q10H IV 11/09/24 08:00 11/09/24 18:46 100 MLS/HR Sodium Chloride 10 ml Q8HR IV 11/09/24 14:00 11/10/24 06:04 10 ML Oxycodone/ Acetaminophen 1 tab Q4HP PRN PO 11/09/24 08:00 11/10/24 09:35 1 TAB Hydromorphone HCl 1 mg Q2HP PRN IV 11/09/24 08:31 11/09/24 20:37 1 MG Ondansetron HCl 4 mg Q6HP PRN IV 11/09/24 08:00 Docusate Sodium 100 mg Q12HR PO 11/09/24 10:00 11/10/24 08:33 100 MG Enoxaparin Sodium 40 mg DAILY SC 11/10/24 10:00 11/10/24 08:35 40 MG Nitroglycerin 0.4 mg Q5MINP PRN SL 11/09/24 08:00 Morphine Sulfate 2 mg Q30M PRN IV 11/09/24 08:00 Diphenhydramine HCl 25 mg Q4HP PRN IV 11/09/24 10:45 Patient Own Medication 8 meq BID PO 11/09/24 22:00 Exam Vital Signs Vital Signs Date Time Temp Pulse Resp B/P (MAP) Pulse Ox O2 Delivery O2 Flow Rate FiO2 11/10/24 08:36 74 92/61 11/10/24 06:47 16 99 11/10/24 05:00 97.5 97.5 11/09/24 20:00 Room Air* 0 21 Labs/Xrays Labs Test 11/10/24 06:24 11/06/24 07:06 Range/Units Hemoglobin 11.4 L 12.2-16.2 g/dL Hematocrit 32.5 #L 36.0-46.0 % Sodium Level 138 136-145 mmol/L Potassium Level 4.7 3.5-5.1 mmol/L Chloride Level 104 98-107 mmol/L Carbon Dioxide Level 25 20-31 mmol/L Anion Gap 9 5-15 Blood Urea Nitrogen 33 H 9-23 mg/dL Creatinine 2.06 #H 0.550-1.02 mg/dL Glomerular Filtration Rate Calc 25 >90 mL/min BUN/Creatinine Ratio 16.0 10.0-20.0 Serum Glucose 119 H 74-106 mg/dL Calcium Level 9.7 8.7-10.4 mg/dL Total Bilirubin 0.7 0.2-1.0 mg/dL Aspartate Amino Transferase (AST) 9 L 13-40 U/L Alanine Aminotransferase (ALT) 12 7-40 U/L Alkaline Phosphatase 52 46-116 U/L Total Protein 6.1 5.7-8.2 g/dL Albumin 3.9 3.2-4.8 g/dL White Blood Count 5.7 4.4-10.8 10^3/uL Red Blood Count 4.48 4.0-5.20 10^6/uL Mean Corpuscular Volume 84.2 80.0-100.0 fL Mean Corpuscular Hemoglobin 28.5 28.0-32.0 pg Mean Corpuscular Hemoglobin Concent 33.9 32.0-36.0 g/dL Red Cell Distribution Width 13.3 11.8-14.3 % Platelet Count 230 140-450 10^3/uL Mean Platelet Volume 7.9 6.9-10.8 fL Neutrophils (%) (Auto) 63.2 37.0-80.0 % Lymphocytes (%) (Auto) 28.0 10.0-50.0 % Monocytes (%) (Auto) 5.6 0.0-12.0 % Eosinophils (%) (Auto) 2.2 0.0-7.0 % Basophils (%) (Auto) 1.0 0.0-2.0 % Neutrophils # (Auto) 3.6 1.6-8.6 10 ^3/uL Lymphocytes # (Auto) 1.6 0.4-5.4 10 ^3/uL Monocytes # (Auto) 0.3 0-1.3 10 ^3/uL Eosinophils # (Auto) 0.1 0-0.8 10 ^3/uL Basophils # (Auto) 0.1 0-0.2 10 ^3/uL Nucleated Red Blood Cells 0.0 % Prothrombin Time 10.0 9.3-11.8 sec Prothrombin Time INR 0.94 0.9-1.15 Activated Partial Thromboplast Time 22.8 L 24.5-34.5 SEC Urine Color Yellow Yellow Urine Clarity Turbid H Clear Urine pH 5.5 5.0-9.0 Urine Specific [place] 1.022 1.001-1.035 Urine Protein Negative Negative Urine Ketones Negative Negative Urine Blood Negative Negative /uL Urine Nitrite Negative Negative Urine Bilirubin Negative Negative Urine Urobilinogen Normal Negative mg/dL Urine Leukocyte Esterase Negative Negative /uL Urine RBC 3 0 - 4 /hpf Urine Microscopic WBC 3 0-5 /HPF Urine Squamous Epithelial Cells Mod <5 /hpf Urine Bacteria Few H None Seen /hpf Urine Mucus Few None Seen Urine Glucose Normal Normal mg/dL Assessment/Plan Assessment/Plan SEE DICTATED NOTE Plan discussed with: Patient, Daughter My Orders Orders - ELKE MUNGUIA MD Procedure Category Date Status Time Hydromorphone PHA 11/10/24 Verified Injection (Dilaudid 10:15 NS PHA 11/10/24 Verified 10:15 Basic Metabolic Panel LAB 11/11/24 Verified 06:00 Complete Blood Count LAB 11/11/24 Verified 06:00 Date of Service: November 10, 2024 Billing Provider: ELKE MUNGUIA MD Common Visit Codes: [id number] INP/OBS CARE (HIGH) ELKE MUNGUIA MD November 10, 2024 10:17
--- NOTE | 2024-11-10 11:02 | DVHHP ---
ADMIT DATE: 11/09/2024 HISTORY OF PRESENT ILLNESS: The patient is a 69-year-old lady who was admitted after she underwent surgery on the right knee for DJD of the knee. The patient at this time denies any significant pain. No history of chest pain, no shortness of breath, no nausea or vomiting. REVIEW OF SYSTEMS: Review of rest of systems otherwise currently negative. PAST MEDICAL HISTORY: Significant for hypertension, hypothyroidism, hyperlipidemia, and depression. MEDICATIONS: She takes levothyroxine, losartan, metoprolol, Paxil, Crestor. ALLERGIES: No known drug allergies. SOCIAL HISTORY: Denies smoking or alcohol. Lives alone. FAMILY HISTORY: Negative. PHYSICAL EXAMINATION: GENERAL: The patient is awake and alert. VITAL SIGNS: Temperature of 97.5, pulse 74 per minute, blood pressure 92/61. SHEENT: Unremarkable. NECK: There is no JVD. EXTREMITIES: No pedal edema. LUNGS: Equal bilaterally. No added sounds. CARDIOVASCULAR SYSTEM: S1, S2 is regular. No murmurs. ABDOMEN: Soft. There is no organomegaly. NEUROLOGIC: Nonfocal. MUSCULOSKELETAL: The right knee is currently in a dressing. ASSESSMENT AND PLAN: * Diabetes mellitus . * Hypotension, for which her blood pressure medication will be held. * Acute renal failure, questionable vasomotor nephropathy for which she will be placed on IV fluids and kidney function to be monitored. * Hyperlipidemia. * Hypothyroidism. * Status post right knee surgery for DJD of the knee for which she will be placed on pain medication and receive physical therapy. MD TARAH Blankenship/ANTOINE/CHRISTELLE TID: [id number] RECEIPT: [id number]
[2024-11-10] MEDS: HYDROmorphone HCL 2 MG/ML VL/or syr IV PRN (11:24)
[2024-11-10] MEDS: ONDANSETRON HCL 4 MG/2 ML VIAL IV PRN (12:04)
[2024-11-11] VITALS (8 sets, daily range): BP systolic 95–128; BP diastolic 42–57; PULSE 70–99; RESP 15–18; TEMP 98.5–98.9; O2SAT 90–98
--- NOTE | 2024-11-11 07:27 | DVHPN2 ---
Progress Note Date Seen: November 11, 2024 Medical Necessity Reason Pt with a Central, PICC or Fol: No Subjective Patient reports: No new complaints Objective vital signs Vital Sign Date Time Temp Pulse Resp B/P (MAP) Pulse Ox O2 Delivery O2 Flow Rate FiO2 11/11/24 05:00 98.9 70 17 124/57 (79) 91 98.9 11/10/24 20:18 Room Air* 0 21 Total Intake and Output 11/10/24 11/10/24 11/11/24 15:00 23:00 07:00 Intake Total 450 ml 140 ml Balance 450 ml 140 ml medications Current Medications Medications Dose Ordered Sig/Gale Route Start Time Stop Time Status Last Admin Dose Admin Famotidine 20 mg DAILY PO 11/09/24 10:00 11/10/24 08:33 20 MG Paroxetine HCl 20 mg DAILY PO 11/09/24 10:00 11/10/24 08:35 20 MG Thiamine HCl 100 mg DAILY GT 11/09/24 10:00 11/10/24 08:33 100 MG Levothyroxine Sodium 100 mcg QAM PO 11/10/24 07:00 11/11/24 06:18 100 MCG Atorvastatin Calcium 40 mg HS PO 11/09/24 22:00 11/10/24 21:43 40 MG Sodium Chloride 10 ml Q8HR IV 11/09/24 14:00 11/11/24 06:17 10 ML Oxycodone/ Acetaminophen 1 tab Q4HP PRN PO 11/09/24 08:00 11/11/24 03:52 1 TAB Ondansetron HCl 4 mg Q6HP PRN IV 11/09/24 08:00 11/10/24 12:04 4 MG Docusate Sodium 100 mg Q12HR PO 11/09/24 10:00 11/10/24 21:43 100 MG Enoxaparin Sodium 40 mg DAILY SC 11/10/24 10:00 11/10/24 08:35 40 MG Nitroglycerin 0.4 mg Q5MINP PRN SL 11/09/24 08:00 Morphine Sulfate 2 mg Q30M PRN IV 11/09/24 08:00 Diphenhydramine HCl 25 mg Q4HP PRN IV 11/09/24 10:45 Hydromorphone HCl 1 mg Q3HP PRN IV 11/10/24 10:15 11/10/24 14:51 1 MG Sodium Chloride 1,000 ml @ 100 mls/hr Q10H IV 11/10/24 10:15 11/10/24 23:30 100 MLS/HR Examination: GENERAL:Normal, MSK:Abnormal laboratory and microbiology Laboratory Tests 11/10/24 06:24 11/06/24 07:06 Test 11/10/24 06:24 Range/Units Serum Glucose 119 H 74-106 mg/dL Problem List/Assessment/Plan Problem List/Assessment/Plan 69 year old female who is s/p Right TKA POD 2 1. Pain control 2. WBAT RLE with use of walker 3. CPM as ordered 4. Physical therapy 5. follow up in 2 weeks at [facility] ortho clinic 6. Prescriptions for percocet, colace and aspirin sent electronically to [facility] [place] on 11/05/2024 7. Patient is clear for discharge home today with home health and in home physical therapy (if a covered benefit) with the following discharge recommendations: Total Knee Arthroplasty Discharge Instructions Wound Care 1. You will likely have a gel-type dressing over your wound, you may keep this on for 7-14 days after leaving the hospital until your first post-op visit, unless it becomes soiled or your skin becomes irritated. If a wound vac dressing is placed on your knee this is to be left in place for one week and will be changed as needed. After your remove the dressing or wound vac, the home health nurse may place clean dry dressing over your wound. Keep wound covered, clean and dry for two weeks. 2. [place] will be removed during your initial post-op visit. If you have concerns about our wound, please call the office immediately. If nervous about staple removal can take pain pill one hour prior to appointment. 3. If there is drainage from your wound, change the dressing daily until it stops. If drainage lasts more than 10 days, call our office. 4. Low grade (up to 100 degrees) fever is common for the first week after surgery. You should take your temperature daily. If you have fevers of 101 or more, please call the office. Medication Management 1. You will be discharged with pain medication, a blood thinner (unless you were previously on a blood thinner prior to surgery) and stool softener. Please follow the instructions regarding these medications as provided by your nurse at the hospital upon discharge. 2. Blood clots in the leg are a known complication of surgery. It is very important that you take the medication to protect against clots. Depending on what you are discharged on � typically it is Lovenox 40mg daily for 2 weeks or Aspirin 81mg twice daily for 4 weeks. After you finish this, you should then take baby Aspirin (81mg) once daily for 2 weeks. 3. You should restart all of your prescription medications once discharged from the hospital/surgery center unless specifically instructed otherwise. 4. Herbal supplements may be restarted 2 weeks after surgery. 5. If you have been given Coumadin as a blood thinner, please follow up with your sustainability manager during the first two weeks after surgery to review medications and overall medical well-being. 6. Please note that narcotic pain medication may cause constipation. Please remember to take stool softeners (Colace) when using narcotics to help reduce the change of constipation. You should not use alcohol together with narcotic medication. Activity 1. You can bear as much weight as you tolerate on your knee unless specifically instructed otherwise. You may use the walking aid which you were discharged with and switch to a cane whenever you feel comfortable doing so. You should use an assistive device until you can walk comfortably without it. Keep in mind that every patient moves at their own speed of recovery so take your time. 2. A physical therapist will visit you at home. 3. Use CPM machine as instructed (6 hours a day) and increase flexion by 5 degrees daily. 4. High impact activity such as jumping, aerobics, tennis, and skiing are not permitted during the first 3 months after surgery. These activities can contribute to accelerated wear and should be done with caution after this time. Discuss this with your surgeon if you have questions. 5. Although a bath or whirlpool is NOT permitted during the first 2-3 weeks, you may shower as soon as you get home from the hospital provided there is no wound drainage. Place a dressing or covering over the wound when you shower. 6. Swimming is not permitted until the wound is healed, which typically occurs approximately 3-4 weeks after surgery. [facility] 1. Driving is not permitted within the first 2 weeks. 2. Your first postoperative visit will take place 2 weeks after discharge. Please call the office once you are home from the hospital to arrange this appointment. 3. Antibiotic preventative treatment is required before dental or other invasive procedures. Please ask your surgeon about this at your first postoperative visit. If you experience chest pain, shortness of breath or severe painful calf swelling, go to the nearest emergency room to be evaluated. Please call our office once your situation is stabilized. Plan discussed with: Patient Date of Service: November 11, 2024 Billing Provider: PRASHANT NORIEGA MD Common Visit Codes: NOT BILLABLE SHELL PELAEZ NP November 11, 2024 07:27
[2024-11-11 07:59] LABS: Basophils # (auto) 0 10 ^3/uL (0-0.2); Basophils % (auto) 0.2 % (0.0-2.0); Eosinophils # (auto) 0.1 10 ^3/uL (0-0.8); Eosinophils % (auto) 0.7 % (0.0-7.0); Hemoglobin 10.6 g/dL (12.2-16.2); Lymphocytes # (auto) 0.6 10 ^3/uL (0.4-5.4); Lymphocytes % (auto) 6.5 % (10.0-50.0); Mean Corpuscular Hemoglobin 29.4 pg (28.0-32.0); Mean Corpuscular Hgb Conc. 35.3 g/dL (32.0-36.0); Mean Corpuscular Volume 83.5 fL (80.0-100.0); Monocytes # (auto) 0.4 10 ^3/uL (0-1.3); Monocytes % (auto) 5.1 % (0.0-12.0); Neutrophils # (auto) 7.5 10 ^3/uL (1.6-8.6); Neutrophils % (auto) 87.5 % (37.0-80.0); Platelet Count (auto) 134 10^3/uL (140-450); Red Blood Cells 3.59 10^6/uL (4.0-5.20); Red Cell Distribution Width 13.4 % (11.8-14.3); White Blood Cell 8.5 10^3/uL (4.4-10.8)
[2024-11-11 08:08] LABS: Anion Gap 7 (5-15); Carbon Dioxide 25 mmol/L (20-31); Chloride 106 mmol/L (98-107); Sodium 138 mmol/L (136-145)
[2024-11-11 08:09] LABS: Calcium 9.4 mg/dL (8.7-10.4)
[2024-11-11 08:14] LABS: BUN/Creatinine Ratio 27.4 (10.0-20.0)
[2024-11-11 08:22] LABS: Blood Urea Nitrogen 34 mg/dL (9-23); Glucose 124 mg/dL (74-106)
[2024-11-11] MEDS: SODIUM CHLORIDE 0.9% 1,000 ML IV SCH (09:15)
--- NOTE | 2024-11-11 09:18 | DVHPN2 ---
Progress Note Date Seen: November 11, 2024 Medical Necessity Reason Pt with a Central, PICC or Fol: No Subjective Patient reports: No new complaints Review of Systems: HEENT:Normal, CVS:Normal, RESPIRATORY:Normal, GI:Normal, :Normal, MSK:Normal, NEURO:Normal Objective vital signs Vital Sign Date Time Temp Pulse Resp B/P (MAP) Pulse Ox O2 Delivery O2 Flow Rate FiO2 11/11/24 05:00 98.9 70 17 124/57 (79) 91 98.9 11/10/24 20:18 Room Air* 0 21 Total Intake and Output 11/10/24 11/10/24 11/11/24 15:00 23:00 07:00 Intake Total 450 ml 140 ml Balance 450 ml 140 ml medications Current Medications Medications Dose Ordered Sig/Gale Route Start Time Stop Time Status Last Admin Dose Admin Famotidine 20 mg DAILY PO 11/09/24 10:00 11/11/24 08:34 20 MG Paroxetine HCl 20 mg DAILY PO 11/09/24 10:00 11/11/24 08:34 20 MG Thiamine HCl 100 mg DAILY GT 11/09/24 10:00 11/11/24 08:34 100 MG Levothyroxine Sodium 100 mcg QAM PO 11/10/24 07:00 11/11/24 06:18 100 MCG Atorvastatin Calcium 40 mg HS PO 11/09/24 22:00 11/10/24 21:43 40 MG Sodium Chloride 10 ml Q8HR IV 11/09/24 14:00 11/11/24 06:17 10 ML Oxycodone/ Acetaminophen 1 tab Q4HP PRN PO 11/09/24 08:00 11/11/24 08:42 1 TAB Ondansetron HCl 4 mg Q6HP PRN IV 11/09/24 08:00 11/10/24 12:04 4 MG Docusate Sodium 100 mg Q12HR PO 11/09/24 10:00 11/11/24 08:34 100 MG Enoxaparin Sodium 40 mg DAILY SC 11/10/24 10:00 11/11/24 08:35 40 MG Nitroglycerin 0.4 mg Q5MINP PRN SL 11/09/24 08:00 Morphine Sulfate 2 mg Q30M PRN IV 11/09/24 08:00 Diphenhydramine HCl 25 mg Q4HP PRN IV 11/09/24 10:45 Hydromorphone HCl 1 mg Q3HP PRN IV 11/10/24 10:15 11/10/24 14:51 1 MG Sodium Chloride 1,000 ml @ 100 mls/hr Q10H IV 11/10/24 10:15 11/10/24 23:30 100 MLS/HR Examination: GENERAL:Normal, HEENT:Normal, NECK:Normal, LUNGS:Normal, CVS:Normal, ABDOMEN:Normal, MSK:Normal, MSK:Abnormal (right knee surgery), SKIN:Normal, NEURO:Normal, :Normal laboratory and microbiology Laboratory Tests 11/11/24 07:28 Test 11/11/24 07:28 Range/Units Serum Glucose 124 H 74-106 mg/dL Problem List/Assessment/Plan Problem List/Assessment/Plan * Diabetes mellitus : SSI. * Hypotension, for which her blood pressure medication will be held. * Acute renal failure, questionable vasomotor nephropathy for which she will be placed on IV fluids and kidney function to be monitored. * Hyperlipidemia. * Hypothyroidism. * Status post right knee surgery for DJD of the knee for which she will be placed on pain medication and receive physical therapy. advance care planning: full code- time spent 18 mins Plan discussed with: Patient, Daughter My Orders My Orders Orders - ELKE MUNGUIA MD Procedure Category Date Status Time Hydromorphone PHA 11/10/24 In Process Injection (Dilaudid 10:15 Sodium Chloride 0.9% PHA 11/10/24 In Process 10:15 NS PHA 11/11/24 Transmitted 09:15 Basic Metabolic Panel LAB 11/12/24 Verified 06:00 * Accounts Receivable Processor CONS 11/11/24 Transmitted Consult Date of Service: November 11, 2024 Billing Provider: ELKE MUNGUIA MD Common Visit Codes: [id number] INP/OBS CARE(HIGH) Secondary Visit Codes: [id number] CARE PLAN 30 MINUTES ELKE MUNGUIA MD November 11, 2024 09:18
[2024-11-12 01:00] VITALS: BP 120/50; PULSE 70; RESP 18; TEMP 98; O2SAT 99
[2024-11-12 05:00] VITALS: BP 143/66; PULSE 98; RESP 18; TEMP 99.1; O2SAT 92
[2024-11-12 07:30] LABS: Hematocrit 27.8 % (36.0-46.0); Hemoglobin 9.8 g/dL (12.2-16.2)
[2024-11-12 07:39] LABS: Potassium 3.7 mmol/L (3.5-5.1); Sodium 141 mmol/L (136-145)
[2024-11-12 07:40] LABS: Anion Gap 7 (5-15); Calcium 9.2 mg/dL (8.7-10.4); Carbon Dioxide 26 mmol/L (20-31)
[2024-11-12 07:45] LABS: BUN/Creatinine Ratio 25.4 (10.0-20.0); Blood Urea Nitrogen 18 mg/dL (9-23)
[2024-11-12 07:46] LABS: Chloride 108 mmol/L (98-107); Glucose 110 mg/dL (74-106)
[2024-11-12 08:00] VITALS: PULSE 85; RESP 16; O2SAT 94
[2024-11-12 09:00] VITALS: BP 139/65; PULSE 85; RESP 16; TEMP 99.3; O2SAT 94
--- NOTE | 2024-11-12 09:24 | DVHDS2 ---
Discharge Summary Date of Admission November 09, 2024 at 08:00 Date of Discharge: November 12, 2024 Labs/Diagnostic Data: Laboratory Results Test 11/12/24 07:11 11/11/24 07:28 11/10/24 06:24 11/06/24 07:06 Hemoglobin 9.8 g/dL (12.2-16.2) Hematocrit 27.8 % (36.0-46.0) Sodium Level 141 mmol/L (136-145) Potassium Level 3.7 mmol/L (3.5-5.1) Chloride Level 108 mmol/L (98-107) Carbon Dioxide Level 26 mmol/L (20-31) Anion Gap 7 (5-15) Blood Urea Nitrogen 18 mg/dL (9-23) Creatinine 0.71 mg/dL (0.550-1.02) Glomerular Filtration Rate Calc 91 mL/min (>90) BUN/Creatinine Ratio 25.4 (10.0-20.0) Serum Glucose 110 mg/dL (74-106) Calcium Level 9.2 mg/dL (8.7-10.4) White Blood Count 8.5 10^3/uL (4.4-10.8) Red Blood Count 3.59 10^6/uL (4.0-5.20) Mean Corpuscular Volume 83.5 fL (80.0-100.0) Mean Corpuscular Hemoglobin 29.4 pg (28.0-32.0) Mean Corpuscular Hemoglobin Concent 35.3 g/dL (32.0-36.0) Red Cell Distribution Width 13.4 % (11.8-14.3) Platelet Count 134 10^3/uL (140-450) Mean Platelet Volume 8.5 fL (6.9-10.8) Neutrophils (%) (Auto) 87.5 % (37.0-80.0) Lymphocytes (%) (Auto) 6.5 % (10.0-50.0) Monocytes (%) (Auto) 5.1 % (0.0-12.0) Eosinophils (%) (Auto) 0.7 % (0.0-7.0) Basophils (%) (Auto) 0.2 % (0.0-2.0) Neutrophils # (Auto) 7.5 10 ^3/uL (1.6-8.6) Lymphocytes # (Auto) 0.6 10 ^3/uL (0.4-5.4) Monocytes # (Auto) 0.4 10 ^3/uL (0-1.3) Eosinophils # (Auto) 0.1 10 ^3/uL (0-0.8) Basophils # (Auto) 0 10 ^3/uL (0-0.2) Nucleated Red Blood Cells 0.0 % Thyroid Stimulating Hormone (TSH) 0.35 uIU/mL (0.55-4.78) Total Bilirubin 0.7 mg/dL (0.2-1.0) Aspartate Amino Transferase (AST) 9 U/L (13-40) Alanine Aminotransferase (ALT) 12 U/L (7-40) Alkaline Phosphatase 52 U/L (46-116) Total Protein 6.1 g/dL (5.7-8.2) Albumin 3.9 g/dL (3.2-4.8) Prothrombin Time 10.0 sec (9.3-11.8) Prothrombin Time INR 0.94 (0.9-1.15) Activated Partial Thromboplast Time 22.8 SEC (24.5-34.5) Urine Color Yellow (Yellow) Urine Clarity Turbid (Clear) Urine pH 5.5 (5.0-9.0) Urine Specific [place] 1.022 (1.001-1.035) Urine Protein Negative (Negative) Urine Ketones Negative (Negative) Urine Blood Negative /uL (Negative) Urine Nitrite Negative (Negative) Urine Bilirubin Negative (Negative) Urine Urobilinogen Normal mg/dL (Negative) Urine Leukocyte Esterase Negative /uL (Negative) Urine RBC 3 /hpf (0 - 4) Urine Microscopic WBC 3 /HPF (0-5) Urine Squamous Epithelial Cells Mod /hpf (<5) Urine Bacteria Few /hpf (None Seen) Urine Mucus Few (None Seen) Urine Glucose Normal mg/dL (Normal) Other Laboratory Tests 11/12/24 07:11 11/11/24 07:28 Brief Hx & Hospital Course: SEE DICTATED NOTE Condition at Discharge: Good Final Diagnosis/Problems List RIGHT KNEE SURGERY Discharge Disposition: Home with Health Services Discharge Instruct/Medications Diet: Cardiac 2g Na,low cholest Activity: No Restrictions, As Tolerated Follow Up/Referral: FU WITH PCP/ORTHO Medications: RESUME HOME MEDS MEDS PER ORTHO Discharge Statement: "Patient was advised to return to the ER or call 911 if any headaches, dizziness, shortness of breath, chest pain, abdominal pain, bleeding, fevers, or worsening of medical condition. Patient was counseled about treatment plan, medications, possible side effects, patient�verbalized understanding. All questions were answered to the best of my ability. This discharge took greater then 30 minutes in planning, reviewing documentation, counseling the patient, and discussing with other team members." ASSESSMENT ASSESSMENT Assessment RIGHT KNEE SURGERY Date of Service: November 12, 2024 Billing Provider: ELKE MUNGUIA MD Common Visit Codes: [id number] DISCH DAY >30min ELKE MUNGUIA MD November 12, 2024 09:24
--- NOTE | 2024-11-12 09:49 | DVHDS ---
DATE OF DISCHARGE: 11/12/2024 HISTORY OF PRESENT ILLNESS: The patient is a 69-year-old lady who was admitted after she underwent surgery on the right knee for DJD of the knee. The patient has a history of hypertension, hypothyroidism, hyperlipidemia, and depression. HOSPITAL COURSE: The patient had elevated creatinine of 2.06. The patient's hemoglobin at the time of discharge is 9.8. The patient's kidney function has since improved with a creatinine of 0.7. The patient will be discharged home to resume her home medications and to follow up with Orthopedics and her primary care. She will be on meds as per Orthopedics. She will have a pulse ox on room air prior to discharge. FINAL DIAGNOSES: Therefore, * Hypotension that has resolved. * History of hypertension. * Acute renal failure, questionable vasomotor nephropathy. * Hyperlipidemia. * Hypothyroidism. * Acute respiratory failure. * Status post right knee surgery for DJD of the knee. The patient will also have home physical therapy. Time spent in discharge planning and review of plan with the patient, family and nursing was 37 minutes. MD TARAH Blankenship/ADRIANE TID: [id number] RECEIPT: [id number]
[2024-11-12 11:49] LABS: Base Excess 0.9 mmol/L (-2.0-3.0)
[2024-11-12 13:38] VITALS: BP 122/59; PULSE 92; RESP 16; TEMP 99; O2SAT 93
[2024-11-12 16:53] VITALS: BP 123/57; PULSE 90; RESP 16; TEMP 99; O2SAT 91
== END 2024-11-12 18:52 | disposition home health service (06) | DRG 469 ==
LOC: EEVIPCON → SUR 06:09 → OVERFLOW 08:00 → CENTRAL 13:30 → TELE-CENTR 11-10 02:43
PROVIDERS: ADMIT Internal Medicine; ATTEND Internal Medicine
PROC: 8E0YXBZ Computer Assisted Procedure of Lower Extremity (ICD-10-PCS; 2024-11-09)
PROC: 0SRC0J9 Replacement of Right Knee Joint with Synthetic Substitute, Cemented, Open Approach (ICD-10-PCS; principal; 2024-11-09 07:13)
DX: M17.11 Unilateral primary osteoarthritis, right knee (principal); J96.00 Acute respiratory failure, unspecified whether with hypoxia or hypercapnia; N17.0 Acute kidney failure with tubular necrosis; E11.9 Type 2 diabetes mellitus without complications; E78.5 Hyperlipidemia, unspecified; E03.9 Hypothyroidism, unspecified; I95.9 Hypotension, unspecified; I10 Essential (primary) hypertension; F32.A Depression, unspecified; Z79.899 Other long term (current) drug therapy
CPT/HCPCS: 36415; 36600; 73562; 80048; 80053; 81001; 82805; 84443; 85014; 85018; 85025; 85610; 85730; 86850; 86900; 86901; 97110; 97116; 97163; G0378; J0131; J0330; J1100; J1885; J2250; J2405; J2704; J3490

== ENCOUNTER → 2024-11-23 | Outpatient (CLI) | payer OTHER, MEDICARE ==
[2024-11-23 16:09] LABS: Basophils # (auto) 0.1 10 ^3/uL (0-0.2); Basophils % (auto) 0.7 % (0.0-2.0); Eosinophils # (auto) 0.2 10 ^3/uL (0-0.8); Eosinophils % (auto) 1.7 % (0.0-7.0); Hematocrit 33.6 % (36.0-46.0); Hemoglobin 11.4 g/dL (12.2-16.2); Lymphocytes # (auto) 1.9 10 ^3/uL (0.4-5.4); Mean Corpuscular Hemoglobin 28.3 pg (28.0-32.0); Mean Corpuscular Volume 83.3 fL (80.0-100.0); Monocytes # (auto) 0.6 10 ^3/uL (0-1.3); Monocytes % (auto) 4.6 % (0.0-12.0); Neutrophils # (auto) 9.8 10 ^3/uL (1.6-8.6); Platelet Count (auto) 412 10^3/uL (140-450); Red Blood Cells 4.04 10^6/uL (4.0-5.20); White Blood Cell 12.5 10^3/uL (4.4-10.8)
== END | disposition home or self-care (01) ==
LOC: LAB 15:39
PROVIDERS: ATTEND Pediatrics
DX: D50.9 Iron deficiency anemia, unspecified (principal)
CPT/HCPCS: 36415; 85025

== ENCOUNTER 2025-01-18 06:37 | Outpatient (CLI) | payer OTHER ==
[2025-01-18 08:38] LABS: Calcium 10.4 mg/dL (8.7-10.4); Potassium 3.8 mmol/L (3.5-5.1); Sodium 144 mmol/L (136-145)
[2025-01-18 08:39] LABS: Anion Gap 10 (5-15); Carbon Dioxide 27 mmol/L (20-31); Chloride 107 mmol/L (98-107)
[2025-01-18 08:44] LABS: BUN/Creatinine Ratio 17.0 (10.0-20.0); Blood Urea Nitrogen 17 mg/dL (9-23); Glucose 94 mg/dL (74-106)
== END 2025-01-18 17:00 | disposition home or self-care (01) ==
LOC: LAB 06:37
PROVIDERS: ATTEND Internal Medicine
DX: I10 Essential (primary) hypertension (principal); E78.5 Hyperlipidemia, unspecified
CPT/HCPCS: 36415; 80048

== ENCOUNTER 2025-05-31 06:19 | Outpatient (CLI) | payer OTHER ==
[2025-05-31 07:05] LABS: Hematocrit 35.3 % (36.0-46.0); Hemoglobin 12.1 g/dL (12.2-16.2); Mean Corpuscular Hemoglobin 28.9 pg (28.0-32.0); Mean Corpuscular Volume 84.6 fL (80.0-100.0); Nucleated Red Blood Cells % 0.0 %
[2025-05-31 07:26] LABS: Triglycerides 112 mg/dL (< 150)
[2025-05-31 07:27] LABS: HDL Cholesterol 51 mg/dL (40-59)
[2025-05-31 07:28] LABS: Cholesterol 148 mg/dL (< 200)
== END 2025-05-31 17:00 | disposition home or self-care (01) ==
LOC: LAB 06:19
PROVIDERS: ATTEND Internal Medicine
DX: I10 Essential (primary) hypertension (principal); E78.5 Hyperlipidemia, unspecified
CPT/HCPCS: 36415; 80061; 84443; 85025